=== PATIENT | female | born 1960 | race Caucasian/White ===

== ENCOUNTER 2025-02-13 11:09 | Emergency (ER) | payer OTHER ==
[~2025-02-13] VITALS: Ht 160 cm; Wt 89.9 kg
[2025-02-13] MEDS ORDERED: CELECOXIB200 MG PO (11:37)
[2025-02-13] MEDS ORDERED: FOLBEE TABLET1 EACH PO (11:37)
[2025-02-13] MEDS ORDERED: TRAZODONE HCL50 MG PO (11:51)
[2025-02-13] MEDS ORDERED: [UNRECOGNIZED DRUG - REMARK] (11:52)
[2025-02-13] MEDS ORDERED: KETOROLAC TROMETHAMINE 30 MG/ML VIAL IV ONE (12:00)
[2025-02-13] MEDS ORDERED: MORPHINE SULFATE 4 MG/ML VIAL IV ONE ×2 (12:00→14:15)
[2025-02-13] MEDS ORDERED: HYDROCODON-ACE1 EA10 PO (14:02)
[2025-02-13] MEDS ORDERED: ONDANSETRON ODT4 MG PO (14:02)
[2025-02-13] MEDS ORDERED: CYCLOBENZAPRINE10 MG PO (14:02)
[2025-02-13 14:24] VITALS: BP 138/97
== END 2025-02-13 14:24 | disposition home or self-care (01) ==
LOC: ED 11:09
DX: S32.019A Unspecified fracture of first lumbar vertebra, initial encounter for closed fracture (principal); V49.9XXA Car occupant (driver) (passenger) injured in unspecified traffic accident, initial encounter; Z79.899 Other long term (current) drug therapy; Z88.7 Allergy status to serum and vaccine; Z88.5 Allergy status to narcotic agent
CPT/HCPCS: 72128; 72131; 96374; 96375; 99284-25; J1885; J2270; J2405

== ENCOUNTER 2025-06-28 14:58 | Emergency (ER) | payer MEDICARE, OTHER ==
[~2025-06-28] VITALS: Ht 160 cm; Wt 82.0 kg
--- OUTSIDE RECORDS SUMMARY | ~2025-06-28 | XMS | Continuity of Care Document ---
Demographics + + + | Address | [address] | | | [place] [address] | + + + | Preferred Language | Unknown | + + + | Marital Status | | + + + | Alevism Affiliation | Unknown | + + + | Race | White | + + + | Ethnic Group | Not or | + + + Author + + + | Author | [facility] | + + + | Organization | [facility] | + + + | Address | [address] | | | [place] [address] | + + + | Phone | | + + + Care Team Providers + + + + | Care Table Operator Name | Role | Phone | + + + + Unavailable | Unavailable | + + + + Allergies No information. Encounters No information. Functional Status No information. Immunizations No information. Medications + + + + | date | description | facility | + + + + | (no date) | [facility] | | | [facility] | + + + + | (no date) | | [facility] | | | CYANOCOBALAMIN/FA/PYRIDOXIN | [facility] | | | E | | + + + + | (no date) | TRAZODONE HCL | [facility] | | | | [facility] | + + + + Problems No information. Procedures No information. Results/Labs No information. Social History + + + + | date | description | facility | + + + + | (no date) | Unknown if ever smoked | [facility] | | | | [facility] | + + + + Vital Signs No information."
[~2025-06-28 14:58] MED LIST: CELECOXIB200 MG PO; CYCLOBENZAPRINE10 MG PO; FOLBEE TABLET1 EACH PO; HYDROCODON-ACE1 EA10 PO; ONDANSETRON ODT4 MG PO; TRAZODONE HCL50 MG PO; [UNRECOGNIZED DRUG - REMARK]
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
[2025-06-28] MEDS ORDERED: FLUORESCEIN SOD 1 EA STRP OS ONE (16:00)
[2025-06-28] MEDS ORDERED: TETRACAINE HCL 0.5% 4 ML BTL OU PRN (16:00)
[2025-06-28] MEDS ORDERED: ERYTHROMYCIN 3.5 GM HOME.PACK OP ONE (16:30)
[2025-06-28 16:32] VITALS: BP 122/75
== END 2025-06-28 16:33 | disposition home or self-care (01) ==
LOC: ED 14:58
DX: S05.02XA Injury of conjunctiva and corneal abrasion without foreign body, left eye, initial encounter (principal); W22.09XA Striking against other stationary object, initial encounter; Z88.7 Allergy status to serum and vaccine; Z88.5 Allergy status to narcotic agent
CPT/HCPCS: 99283